=== PATIENT | female | born 1960 | race Caucasian/White ===

== ENCOUNTER 2023-02-24 16:57 | Inpatient (IN) | payer OTHER ==
[2023-02-24 20:04] VITALS: BMI 30.2
[2023-02-24] MEDS ORDERED: BISMUTH SUBSALICYLATE 524 MG/30 ML PO PRN (23:26)
[2023-02-24] MEDS ORDERED: IBUPROFEN 600 MG TABLET (FP) PO PRN (23:26)
[2023-02-24] MEDS ORDERED: BENZONATATE 200 MG CAPSULE PO PRN (23:26)
[2023-02-24] MEDS ORDERED: BENZOCAINE/MENTHOL (CHLORASEPTIC ) LOZENGE MM PRN (23:26)
[2023-02-24] MEDS ORDERED: MAG HYDROX/AL HYDROX/SIMETH 30 ML UNIT-DOSE CUP PO PRN (23:26)
[2023-02-24] MEDS ORDERED: ONDANSETRON *ODT* 4 MG TABLET SL PRN (23:26)
[2023-02-24] MEDS ORDERED: IBUPROFEN 400 MG TABLET (FP) PO PRN (23:26)
[2023-02-24] MEDS ORDERED: DICYCLOMINE HCL 10 MG CAPSULE PO PRN (23:26)
[2023-02-24] MEDS ORDERED: METHOCARBAMOL 500 MG TABLET PO PRN (23:26)
[2023-02-24] MEDS ORDERED: NALOXONE HCL (KLOXXADO) 8 MG SPRAY NS PRN (23:26)
[2023-02-24] MEDS ORDERED: MAGNESIUM HYDROX 2400MG/30ML ORAL SUSPENSION 30 ML CUP PO PRN (23:26)
[2023-02-24] MEDS ORDERED: NALOXONE HCL 0.4 MG/ML VIAL IM PRN (23:26)
[2023-02-24] MEDS ORDERED: POLYETHYLENE GLYCOL (HEALTHYLAX) 3350 17 GM PACKET PO PRN (23:26)
[2023-02-24] MEDS ORDERED: LOPERAMIDE HCL 2 MG CAPSULE PO PRN (23:26)
[2023-02-24] MEDS ORDERED: ACETAMINOPHEN 325 MG TABLET (FP) PO PRN (23:26)
[2023-02-24] MEDS ORDERED: guaiFENesin 600 MG TABLET.ER (FP) PO PRN (23:26)
[2023-02-25] MEDS ORDERED: LORazepam 2 MG/ML SDV VIAL IM ONE (00:15)
[2023-02-25] MEDS ORDERED: LORazepam 1 MG TABLET PO PRN (01:04)
[2023-02-25] MEDS: LORazepam 2 MG TABLET PO SCH ×4 (05:19→22:23)
[2023-02-25 10:20] LABS: HEMATOCRIT 30.2 % (32.4-45.2); HEMOGLOBIN 10.2 GM/dL (10.7-15.3); MCH 30.4 pg (25.7-33.7); MCHC 33.7 g/dl (32.0-36.0); MEAN PLT VOLUME 7.9 fl (7.5-11.1); PLATELET COUNT 153 10^3/uL (134-434); RBC 3.35 M/mm3 (3.60-5.2); RDW 15.5 % (11.6-15.6); WHITE BLOOD COUNT 5.4 K/mm3 (4.0-10.0)
[2023-02-25 10:26] LABS: POTASSIUM 3.8 mmol/L (3.5-5.1)
[2023-02-25] MEDS: amLODIPine BESYLATE 5 MG TABLET (FP) PO SCH (10:26)
[2023-02-25] MEDS: PRENATAL VITAMINS W/ FOLIC ACID TABLET (FP) PO SCH (10:26)
[2023-02-25 10:30] LABS: ALBUMIN 3.6 g/dl (3.4-5.0); BLOOD UREA NITROGEN 10.2 mg/dL (7-18)
[2023-02-25 10:34] LABS: CREATININE 0.7 mg/dL (0.55-1.3)
[2023-02-25 10:35] LABS: TOT PROT 6.6 g/dl (6.4-8.2)
[2023-02-25] MEDS ORDERED: THIAMINE HCL 100 MG TABLET (FP) PO SCH (22:00)
[2023-02-25] MEDS ORDERED: MELATONIN 5 MG TABLETS PO SCH (22:00)
[2023-02-26] MEDS: LORazepam 1 MG TABLET PO SCH ×2 (05:47→10:07)
[2023-02-26 07:15] VITALS: RESP 18
[2023-02-26] MEDS: amLODIPine BESYLATE 5 MG TABLET (FP) PO SCH (10:07)
[2023-02-26] MEDS: PRENATAL VITAMINS W/ FOLIC ACID TABLET (FP) PO SCH (10:07)
[2023-02-26 13:20] VITALS: BP 144/93; PULSE 98; TEMP 96.9
[2023-02-27] MEDS ORDERED: LORazepam 0.5 MG TABLET PO PRN
[2023-02-27] MEDS ORDERED: LORazepam 0.5 MG TABLET PO SCH (05:00)
[2023-02-27] MEDS ORDERED: amLODIPine BESYLATE 10 MG TABLET (FP) PO SCH (10:00)
[2023-02-28] MEDS ORDERED: LORazepam 0.5 MG TABLET PO ONE (05:00)
== END 2023-02-26 15:50 | disposition left against medical advice (07) | DRG 770 ==
LOC: YASAS 16:57 → Y6N 23:43
PROVIDERS: ADMIT Allergy & Immunology; ATTEND Allergy & Immunology
PROC: HZ2ZZZZ Detoxification Services for Substance Abuse Treatment (ICD-10-PCS; principal; 2023-02-24)
DX: F10.230 Alcohol dependence with withdrawal, uncomplicated (principal); I10 Essential (primary) hypertension; Z86.59 Personal history of other mental and behavioral disorders; Z87.19 Personal history of other diseases of the digestive system
CPT/HCPCS: 36415; 80053; 85027; 86780; 87635

== ENCOUNTER 2023-06-25 20:54 | Inpatient (IN) | payer OTHER ==
[2023-06-25 21:15] VITALS: BMI 39.2
[2023-06-25] MEDS ORDERED: SIMETHICONE 80 MG TAB.CHEW (FP) PO PRN (22:10)
[2023-06-25] MEDS ORDERED: MAG HYDROX/AL HYDROX/SIMETH 30 ML UNIT-DOSE CUP PO PRN (22:15)
[2023-06-25] MEDS ORDERED: LOPERAMIDE HCL 2 MG CAPSULE PO PRN (22:15)
[2023-06-25] MEDS ORDERED: BENZOCAINE/MENTHOL (CHLORASEPTIC ) LOZENGE MM PRN (22:15)
[2023-06-25] MEDS ORDERED: guaiFENesin 600 MG TABLET.ER (FP) PO PRN (22:15)
[2023-06-25] MEDS ORDERED: IBUPROFEN 400 MG TABLET (FP) PO PRN (22:15)
[2023-06-25] MEDS ORDERED: BENZONATATE 200 MG CAPSULE PO PRN (22:15)
[2023-06-25] MEDS ORDERED: POLYETHYLENE GLYCOL (HEALTHYLAX) 3350 17 GM PACKET PO PRN (22:15)
[2023-06-25] MEDS ORDERED: ACETAMINOPHEN 325 MG TABLET (FP) PO PRN (22:15)
[2023-06-25] MEDS ORDERED: P-EPHED 60MG/TRIPROLIDI 2.5MG TABLET PO PRN (22:15)
[2023-06-25] MEDS ORDERED: BISMUTH SUBSALICYLATE 524 MG/30 ML PO PRN (22:15)
[2023-06-25] MEDS ORDERED: ONDANSETRON *ODT* 4 MG TABLET ONE (22:54)
[2023-06-25] MEDS ORDERED: diazePAM 5 MG TABLET ONE (22:54)
[2023-06-25] MEDS ORDERED: MELATONIN 5 MG TABLETS ONE (22:55)
[2023-06-25] MEDS: diazePAM 5 MG TABLET PO SCH (22:56)
[2023-06-25] MEDS: ONDANSETRON *ODT* 4 MG TABLET SL PRN (22:56)
[2023-06-25] MEDS ORDERED: MELATONIN 5 MG TABLETS PO ONE (23:00)
[2023-06-26] MEDS: diazePAM 5 MG TABLET PO SCH ×4 (05:59→22:10)
[2023-06-26] MEDS: ONDANSETRON *ODT* 4 MG TABLET SL PRN (06:08)
[2023-06-26] MEDS: PRENATAL VITAMINS W/ FOLIC ACID TABLET (FP) PO SCH (10:19)
[2023-06-26 11:02] LABS: HEMATOCRIT 31.2 % (32.4-45.2); HEMOGLOBIN 10.2 GM/dL (10.7-15.3); MCH 29.8 pg (25.7-33.7); MCHC 32.9 g/dl (32.0-36.0); MEAN CELL VOLUME 90.6 fl (80-96); MEAN PLT VOLUME 9.1 fl (7.5-11.1); PLATELET COUNT 89 10^3/uL (134-434); RBC 3.44 M/mm3 (3.60-5.2); RDW 15.7 % (11.6-15.6); WHITE BLOOD COUNT 3.3 K/mm3 (4.0-10.0)
[2023-06-26 11:11] LABS: POTASSIUM 3.9 mmol/L (3.5-5.1)
[2023-06-26 11:19] LABS: BLOOD UREA NITROGEN 4.2 mg/dL (7-18); CALCIUM 8.2 mg/dL (8.5-10.1)
[2023-06-26 11:20] LABS: ALBUMIN 3.1 g/dl (3.4-5.0)
[2023-06-26 11:23] LABS: CREATININE 0.6 mg/dL (0.55-1.3); TOT PROT 6.2 g/dl (6.4-8.2)
[2023-06-26] MEDS ORDERED: FLU VACCINE (FLULAVAL) PF 60 MCG/0.5 ML SYRINGE 2023-2024 IM ONE (12:00)
[2023-06-26] MEDS: amLODIPine BESYLATE 10 MG TABLET (FP) PO SCH (14:54)
[2023-06-26] MEDS: diazePAM 5 MG TABLET PO PRN (14:54)
[2023-06-26] MEDS ORDERED: MELATONIN 5 MG TABLETS PO SCH ×2 (22:00)
[2023-06-26] MEDS: SUVOREXANT 10 MG TABLET PO PRN (22:10)
[2023-06-26] MEDS: THIAMINE HCL 100 MG TABLET (FP) PO SCH (22:10)
[2023-06-26] MEDS: MELATONIN 5 MG TABLETS PO SCH (22:11)
[2023-06-27] MEDS: diazePAM 5 MG TABLET PO SCH ×3 (05:35→22:23)
[2023-06-27] MEDS: amLODIPine BESYLATE 10 MG TABLET (FP) PO SCH (10:30)
[2023-06-27] MEDS: PRENATAL VITAMINS W/ FOLIC ACID TABLET (FP) PO SCH (10:30)
[2023-06-27] MEDS: diazePAM 5 MG TABLET PO PRN (17:11)
[2023-06-27] MEDS: MELATONIN 5 MG TABLETS PO SCH (22:23)
[2023-06-27] MEDS: THIAMINE HCL 100 MG TABLET (FP) PO SCH (22:23)
[2023-06-27] MEDS: SUVOREXANT 10 MG TABLET PO PRN (22:24)
[2023-06-28] MEDS: diazePAM 5 MG TABLET PO SCH ×2 (05:21→17:50)
[2023-06-28] MEDS: amLODIPine BESYLATE 10 MG TABLET (FP) PO SCH (10:28)
[2023-06-28] MEDS: PRENATAL VITAMINS W/ FOLIC ACID TABLET (FP) PO SCH (10:28)
[2023-06-28] MEDS: MAGNESIUM HYDROX 2400MG/30ML ORAL SUSPENSION 30 ML CUP PO PRN ×2 (14:15→17:53)
[2023-06-28] MEDS: THIAMINE HCL 100 MG TABLET (FP) PO SCH (22:13)
[2023-06-28] MEDS: SUVOREXANT 10 MG TABLET PO PRN (22:13)
[2023-06-28] MEDS: MELATONIN 5 MG TABLETS PO SCH (22:13)
[2023-06-28] MEDS: diazePAM 5 MG TABLET PO PRN (22:14)
[2023-06-29] MEDS ORDERED: MELATONIN 5 MG TABLETS PO ONE (01:20)
[2023-06-29] MEDS ORDERED: diazePAM 5 MG TABLET PO ONE (06:00)
[2023-06-29] MEDS: amLODIPine BESYLATE 10 MG TABLET (FP) PO SCH (09:26)
[2023-06-29] MEDS: PRENATAL VITAMINS W/ FOLIC ACID TABLET (FP) PO SCH (09:26)
[2023-06-29 09:42] VITALS: BP 110/72; PULSE 81; RESP 16; TEMP 97.8
== END 2023-06-29 10:13 | disposition home or self-care (01) | DRG 775 ==
LOC: YASAS 20:54 → Y6N 22:13
PROVIDERS: ADMIT Allergy & Immunology; ATTEND Surgery
PROC: HZ2ZZZZ Detoxification Services for Substance Abuse Treatment (ICD-10-PCS; principal; 2023-06-25)
DX: F10.230 Alcohol dependence with withdrawal, uncomplicated (principal); F13.230 Sedative, hypnotic or anxiolytic dependence with withdrawal, uncomplicated; F10.282 Alcohol dependence with alcohol-induced sleep disorder; F10.24 Alcohol dependence with alcohol-induced mood disorder; F31.9 Bipolar disorder, unspecified; F41.9 Anxiety disorder, unspecified; D51.9 Vitamin B12 deficiency anemia, unspecified; I10 Essential (primary) hypertension; K70.30 Alcoholic cirrhosis of liver without ascites; K21.9 Gastro-esophageal reflux disease without esophagitis; K64.4 Residual hemorrhoidal skin tags; R76.11 Nonspecific reaction to tuberculin skin test without active tuberculosis
CPT/HCPCS: 36415; 80053; 80307; 82746; 85027; 86780; 87635; 87811; 90686; G0008; Q0162

== ENCOUNTER 2024-01-21 15:25 | Inpatient (IN) | payer OTHER ==
[2024-01-21 16:51] VITALS: BMI 31.9
[2024-01-21] MEDS ORDERED: guaiFENesin 600 MG TABLET.ER (FP) PO PRN (17:22)
[2024-01-21] MEDS ORDERED: BENZOCAINE/MENTHOL (CHLORASEPTIC ) LOZENGE MM PRN (17:22)
[2024-01-21] MEDS ORDERED: POLYETHYLENE GLYCOL (HEALTHYLAX) 3350 17 GM PACKET PO PRN (17:22)
[2024-01-21] MEDS ORDERED: IBUPROFEN 400 MG TABLET (FP) PO PRN (17:22)
[2024-01-21] MEDS ORDERED: DICYCLOMINE HCL 10 MG CAPSULE PO PRN (17:22)
[2024-01-21] MEDS ORDERED: MAGNESIUM HYDROX 2400MG/30ML ORAL SUSPENSION 30 ML CUP PO PRN (17:22)
[2024-01-21] MEDS ORDERED: LOPERAMIDE HCL 2 MG CAPSULE PO PRN (17:22)
[2024-01-21] MEDS ORDERED: BENZONATATE 200 MG CAPSULE PO PRN (17:22)
[2024-01-21] MEDS ORDERED: METHOCARBAMOL 500 MG TABLET PO PRN (17:22)
[2024-01-21] MEDS ORDERED: BISMUTH SUBSALICYLATE 524 MG/30 ML PO PRN (17:22)
[2024-01-21] MEDS ORDERED: diazePAM 5 MG TABLET PO PRN (17:33)
[2024-01-21] MEDS: MAG HYDROX/AL HYDROX/SIMETH 30 ML UNIT-DOSE CUP PO PRN (20:56)
[2024-01-21] MEDS: MELATONIN 5 MG TABLETS PO SCH (22:10)
[2024-01-21] MEDS: THIAMINE 100 MG TABLET PO SCH (22:10)
[2024-01-21] MEDS: diazePAM 5 MG TABLET PO SCH (22:10)
[2024-01-22] MEDS: ONDANSETRON *ODT* 4 MG TABLET SL PRN (09:13)
[2024-01-22] MEDS: PRENATAL VITAMINS W/ FOLIC ACID TABLET (FP) PO SCH (10:17)
[2024-01-22] MEDS: FLUoxetine HCL 20 MG CAPSULE PO SCH (10:30)
[2024-01-22 11:38] LABS: HEMATOCRIT 29.4 % (32.4-45.2); HEMOGLOBIN 9.7 GM/dL (10.7-15.3); MCHC 33.1 g/dl (32.0-36.0); MEAN CELL VOLUME 81.6 fl (80-96); PLATELET COUNT 109 10^3/uL (134-434); RBC 3.61 M/mm3 (3.60-5.2); RDW 17.4 % (11.6-15.6)
[2024-01-22 11:52] LABS: ALBUMIN 3.1 g/dl (3.4-5.0); BLOOD UREA NITROGEN 7.9 mg/dL (7-18); CALCIUM 8.6 mg/dL (8.5-10.1)
[2024-01-22 11:55] LABS: CREATININE 0.5 mg/dL (0.55-1.3)
[2024-01-22 11:57] LABS: BILIRUBIN,TOTAL 1.1 mg/dL (0.2-1); TOT PROT 6.4 g/dl (6.4-8.2)
[2024-01-22] MEDS: hydrOXYzine PAMOATE 25 MG CAPSULE (FP) PO PRN (12:46)
[2024-01-22] MEDS: SUVOREXANT 10 MG TABLET PO PRN (22:14)
[2024-01-23] MEDS: diazePAM 5 MG TABLET PO SCH (05:50)
[2024-01-23 08:56] VITALS: BP 140/90; PULSE 78; RESP 16; TEMP 97.9
[2024-01-24] MEDS ORDERED: diazePAM 5 MG TABLET PO ONE (06:00)
== END 2024-01-23 10:08 | disposition home or self-care (01) | DRG 775 ==
LOC: YASAS 15:25 → Y3N 18:03
PROVIDERS: ADMIT Allergy & Immunology; ATTEND Surgery
PROC: HZ2ZZZZ Detoxification Services for Substance Abuse Treatment (ICD-10-PCS; principal; 2024-01-21)
DX: F10.230 Alcohol dependence with withdrawal, uncomplicated (principal); F31.9 Bipolar disorder, unspecified; F10.282 Alcohol dependence with alcohol-induced sleep disorder; F10.24 Alcohol dependence with alcohol-induced mood disorder; I10 Essential (primary) hypertension; Z87.19 Personal history of other diseases of the digestive system
CPT/HCPCS: 36415; 80053; 80305; 80307; 85027; 86780; 93005; 93010; Q0162

== ENCOUNTER 2024-04-16 16:35 | Inpatient (IN) | payer OTHER ==
[2024-04-16 17:33] VITALS: BMI 33.7
[2024-04-16] MEDS ORDERED: guaiFENesin 600 MG TABLET.ER (FP) PO PRN (17:48)
[2024-04-16] MEDS ORDERED: MAGNESIUM HYDROX 2400MG/30ML ORAL SUSPENSION 30 ML CUP PO PRN (17:48)
[2024-04-16] MEDS ORDERED: BENZONATATE 200 MG CAPSULE PO PRN (17:48)
[2024-04-16] MEDS ORDERED: IBUPROFEN 600 MG TABLET (FP) PO PRN (17:48)
[2024-04-16] MEDS ORDERED: BISMUTH SUBSALICYLATE 524 MG/30 ML PO PRN (17:48)
[2024-04-16] MEDS ORDERED: LOPERAMIDE HCL 2 MG CAPSULE PO PRN (17:48)
[2024-04-16] MEDS ORDERED: POLYETHYLENE GLYCOL (HEALTHYLAX) 3350 17 GM PACKET PO PRN (17:48)
[2024-04-16] MEDS ORDERED: ACETAMINOPHEN 325 MG TABLET (FP) PO PRN (17:48)
[2024-04-16] MEDS ORDERED: IBUPROFEN 400 MG TABLET (FP) PO PRN (17:48)
[2024-04-16] MEDS ORDERED: BENZOCAINE/MENTHOL (CHLORASEPTIC ) LOZENGE MM PRN (17:48)
[2024-04-16] MEDS ORDERED: DICYCLOMINE HCL 10 MG CAPSULE PO PRN (17:48)
[2024-04-16] MEDS ORDERED: P-EPHED 60MG/TRIPROLIDI 2.5MG TABLET PO PRN (17:48)
[2024-04-16] MEDS: MAG HYDROX/AL HYDROX/SIMETH 30 ML UNIT-DOSE CUP PO PRN (19:21)
[2024-04-16] MEDS: diazePAM 5 MG TABLET PO PRN (19:24)
[2024-04-16] MEDS: hydrOXYzine PAMOATE 25 MG CAPSULE (FP) PO PRN (19:24)
[2024-04-16] MEDS: FAMOTIDINE 20 MG TABLET PO ONE (20:40)
[2024-04-16] MEDS: THIAMINE 100 MG TABLET PO SCH (22:12)
[2024-04-16] MEDS: MELATONIN 5 MG TABLETS PO SCH (22:12)
[2024-04-16] MEDS: diazePAM 5 MG TABLET PO SCH (22:13)
[2024-04-17] MEDS: PANTOPRAZOLE 40 MG TABLET PO SCH (07:33)
[2024-04-17 08:59] LABS: POTASSIUM 3.7 mmol/L (3.5-5.1)
[2024-04-17 09:07] LABS: HEMATOCRIT 29.9 % (32.4-45.2); HEMOGLOBIN 9.8 GM/dL (10.7-15.3); MCH 27.6 pg (25.7-33.7); MCHC 32.8 g/dl (32.0-36.0); MEAN CELL VOLUME 84.1 fl (80-96); MEAN PLT VOLUME 8.1 fl (7.5-11.1); PLATELET COUNT 141 10^3/uL (134-434); RBC 3.56 M/mm3 (3.60-5.2); RDW 17.3 % (11.6-15.6); WHITE BLOOD COUNT 3.3 K/mm3 (4.0-10.0)
[2024-04-17 09:08] LABS: CALCIUM 8.6 mg/dL (8.5-10.1)
[2024-04-17 09:09] LABS: ALBUMIN 3.1 g/dl (3.4-5.0); BLOOD UREA NITROGEN 8.1 mg/dL (7-18)
[2024-04-17 09:12] LABS: CREATININE 0.7 mg/dL (0.55-1.3)
[2024-04-17 09:13] LABS: BILIRUBIN,TOTAL 1.9 mg/dL (0.2-1); TOT PROT 6.3 g/dl (6.4-8.2)
[2024-04-17] MEDS: FOLIC ACID 1 MG TABLET (FP) PO SCH (10:12)
[2024-04-17] MEDS: amLODIPine BESYLATE 10 MG TABLET (FP) PO SCH (10:12)
[2024-04-17] MEDS: PRENATAL VITAMINS W/ FOLIC ACID TABLET (FP) PO SCH (10:14)
[2024-04-17] MEDS: FLUoxetine HCL 20 MG CAPSULE PO SCH (11:51)
[2024-04-17] MEDS: ONDANSETRON *ODT* 4 MG TABLET SL PRN (17:17)
[2024-04-18] MEDS: diazePAM 5 MG TABLET PO SCH (05:45)
[2024-04-19] MEDS: diazePAM 5 MG TABLET PO SCH (05:38)
[2024-04-19 06:16] VITALS: RESP 16
[2024-04-19 09:11] VITALS: BP 129/78; PULSE 75; TEMP 98.4
[2024-04-20] MEDS ORDERED: diazePAM 5 MG TABLET PO ONE (06:00)
== END 2024-04-19 09:35 | disposition home or self-care (01) | DRG 775 ==
LOC: YASAS 16:35 → Y6N 18:24
PROVIDERS: ADMIT Allergy & Immunology; ATTEND Surgery
PROC: HZ2ZZZZ Detoxification Services for Substance Abuse Treatment (ICD-10-PCS; principal; 2024-04-16)
DX: F10.230 Alcohol dependence with withdrawal, uncomplicated (principal); F41.1 Generalized anxiety disorder; F32.A Depression, unspecified; D51.3 Other dietary vitamin B12 deficiency anemia; I10 Essential (primary) hypertension; K70.30 Alcoholic cirrhosis of liver without ascites; K21.9 Gastro-esophageal reflux disease without esophagitis; Z98.84 Bariatric surgery status
CPT/HCPCS: 36415; 80053; 80305; 80307; 85027; Q0162

== ENCOUNTER 2024-06-07 15:22 | Inpatient (IN) | payer OTHER ==
[2024-06-07 16:51] VITALS: BMI 33.7
[2024-06-07] MEDS ORDERED: DICYCLOMINE HCL 10 MG CAPSULE PO PRN (17:11)
[2024-06-07] MEDS ORDERED: LOPERAMIDE HCL 2 MG CAPSULE PO PRN (17:11)
[2024-06-07] MEDS ORDERED: BISMUTH SUBSALICYLATE 524 MG/30 ML PO PRN (17:11)
[2024-06-07] MEDS ORDERED: MAGNESIUM HYDROX 2400MG/30ML ORAL SUSPENSION 30 ML CUP PO PRN (17:11)
[2024-06-07] MEDS ORDERED: BENZONATATE 200 MG CAPSULE PO PRN (17:11)
[2024-06-07] MEDS ORDERED: IBUPROFEN 400 MG TABLET (FP) PO PRN (17:11)
[2024-06-07] MEDS ORDERED: POLYETHYLENE GLYCOL (HEALTHYLAX) 3350 17 GM PACKET PO PRN (17:11)
[2024-06-07] MEDS ORDERED: BENZOCAINE/MENTHOL (CHLORASEPTIC ) LOZENGE MM PRN (17:11)
[2024-06-07] MEDS ORDERED: MAG HYDROX/AL HYDROX/SIMETH 30 ML UNIT-DOSE CUP PO PRN (17:11)
[2024-06-07] MEDS ORDERED: guaiFENesin 600 MG TABLET.ER (FP) PO PRN (17:11)
[2024-06-07] MEDS ORDERED: LORazepam 2 MG/ML SDV VIAL ONE (17:51)
[2024-06-07] MEDS: LORazepam 2 MG/ML SDV VIAL IM ONE (17:51)
[2024-06-07] MEDS: TRIMETHOBENZAMIDE HCL 200MG/2ML INJ IM ONE (17:51)
[2024-06-07] MEDS ORDERED: TRIMETHOBENZAMIDE HCL 200MG/2ML INJ IM ONE (17:51)
[2024-06-07] MEDS: THIAMINE 100 MG TABLET PO SCH (22:32)
[2024-06-07] MEDS: MELATONIN 5 MG TABLETS PO SCH (22:32)
[2024-06-07] MEDS: hydrOXYzine PAMOATE 25 MG CAPSULE (FP) PO PRN (22:32)
[2024-06-07] MEDS: diazePAM 5 MG TABLET PO SCH (22:33)
[2024-06-07] MEDS: METHOCARBAMOL 500 MG TABLET PO PRN (22:36)
[2024-06-08] MEDS: FAMOTIDINE 20 MG TABLET PO SCH (07:54)
[2024-06-08] MEDS ORDERED: TRIMETHOBENZAMIDE HCL 200MG/2ML INJ IM PRN (08:52)
[2024-06-08] MEDS: PRENATAL VITAMINS W/ FOLIC ACID TABLET (FP) PO SCH (09:25)
[2024-06-08] MEDS: ONDANSETRON *ODT* 4 MG TABLET SL ONE (09:25)
[2024-06-08 11:18] LABS: HEMATOCRIT 30.5 % (32.4-45.2); HEMOGLOBIN 10.5 GM/dL (10.7-15.3); MCH 28.3 pg (25.7-33.7); MCHC 34.5 g/dl (32.0-36.0); MEAN CELL VOLUME 81.9 fl (80-96); MEAN PLT VOLUME 7.9 fl (7.5-11.1); PLATELET COUNT 183 10^3/uL (134-434); RBC 3.72 M/mm3 (3.60-5.2); RDW 15.8 % (11.6-15.6); WHITE BLOOD COUNT 4.3 K/mm3 (4.0-10.0)
[2024-06-08 11:25] LABS: POTASSIUM 3.9 mmol/L (3.5-5.1)
[2024-06-08 11:29] LABS: ALBUMIN 3.4 g/dl (3.4-5.0); CALCIUM 8.4 mg/dL (8.5-10.1)
[2024-06-08 11:30] LABS: BLOOD UREA NITROGEN 14.8 mg/dL (7-18)
[2024-06-08 11:32] LABS: BILIRUBIN,TOTAL 1.6 mg/dL (0.2-1); TOT PROT 6.5 g/dl (6.4-8.2)
[2024-06-08 11:33] LABS: CREATININE 0.9 mg/dL (0.55-1.3)
[2024-06-08] MEDS: SUCRALFATE 1 GM TABLET (FP) PO SCH (13:04)
[2024-06-08] MEDS: diazePAM 5 MG TABLET PO PRN (13:53)
[2024-06-08] MEDS: FLUoxetine HCL 20 MG CAPSULE PO SCH (14:15)
[2024-06-08] MEDS: IBUPROFEN 600 MG TABLET (FP) PO PRN (22:17)
[2024-06-08] MEDS: SUVOREXANT 5 MG TABLET PO PRN (22:19)
[2024-06-09] MEDS: diazePAM 5 MG TABLET PO SCH (05:59)
[2024-06-09] MEDS: ACETAMINOPHEN 325 MG TABLET (FP) PO PRN (12:39)
[2024-06-09 14:00] VITALS: RESP 16
[2024-06-09] MEDS: amLODIPine BESYLATE 10 MG TABLET (FP) PO SCH (16:02)
[2024-06-10] MEDS: diazePAM 5 MG TABLET PO SCH (05:39)
[2024-06-10] MEDS ORDERED: NALOXONE (NYS OPIOID OVERDOSE PROGRAM) 4 MG/0.1 ML SPRAY NS PRN (09:15)
[2024-06-10] MEDS: ONDANSETRON *ODT* 4 MG TABLET SL PRN (09:18)
[2024-06-10 09:55] VITALS: BP 129/88; PULSE 74; TEMP 97.7
[2024-06-11] MEDS ORDERED: diazePAM 5 MG TABLET PO ONE (06:00)
== END 2024-06-10 10:57 | disposition home or self-care (01) | DRG 775 ==
LOC: YASAS 15:22 → Y6N 17:40
PROVIDERS: ADMIT Allergy & Immunology; ATTEND Surgery
PROC: HZ2ZZZZ Detoxification Services for Substance Abuse Treatment (ICD-10-PCS; principal; 2024-06-07)
DX: F10.230 Alcohol dependence with withdrawal, uncomplicated (principal); F10.282 Alcohol dependence with alcohol-induced sleep disorder; F41.9 Anxiety disorder, unspecified; F32.A Depression, unspecified; I10 Essential (primary) hypertension; K70.30 Alcoholic cirrhosis of liver without ascites; K21.9 Gastro-esophageal reflux disease without esophagitis; M17.0 Bilateral primary osteoarthritis of knee; D51.3 Other dietary vitamin B12 deficiency anemia; Z99.89 Dependence on other enabling machines and devices; Z98.84 Bariatric surgery status
CPT/HCPCS: 36415; 80053; 80305; 85027; Q0162